=== PATIENT | female | born 1930 | race Caucasian/White ===

== ENCOUNTER 2017-09-01 07:59 | Emergency (ER) | payer MEDICARE ==
[~2017-09-01] VITALS: Ht 152.4 cm; Wt 81.6 kg
[2017-09-01] MEDS ORDERED: SODIUM CHLORIDE 0.9% 1000ML 1,000 ML IV STA (08:06)
[2017-09-01] MEDS ORDERED: MORPHINE SULFATE INJ 4 MG/ML INJ IV STA (08:06)
[2017-09-01] MEDS ORDERED: FAMOTIDINE 20 MG/2 ML VIAL IV ONE (08:15)
[2017-09-01] MEDS ORDERED: KETOROLAC TROMETHAMINE 30 MG/ML VIAL IV ONE (08:15)
[2017-09-01] MEDS ORDERED: CEFTRIAXONE SOD 1 GM VIAL IV ONE (08:15)
[2017-09-01] MEDS ORDERED: ONDANSETRON HCL INJ 2 MG/ML VIAL IV ONE (08:15)
[2017-09-01] MEDS ORDERED: MELOXICAM7.5 MG PO (08:24)
[2017-09-01] MEDS ORDERED: BREO INH (08:24)
[2017-09-01] MEDS ORDERED: CENTRUM SILVER1 EAC3 PO (08:24)
[2017-09-01] MEDS ORDERED: ALLOPURINOL100 MG PO (08:24)
[2017-09-01] MEDS ORDERED: LEVOTHYROXINE75 MCG PO (08:24)
[2017-09-01] MEDS ORDERED: METFORMIN HCL500 M1 PO (08:24)
[2017-09-01] MEDS ORDERED: METFORMIN HCL500 M2 PO (08:24)
[2017-09-01 08:55] LABS: BASOPHILS # (AUTO) 0.1 (0.0-0.1); BASOPHILS % 0.5 % (0.0-1.0); EOSINOPHILS # (AUTO) 0.1 (0.0-0.4); HEMATOCRIT 40.1 % (34.2-44.1); HEMOGLOBIN 13.3 g/dL (12.0-16.0); LYMPHOCYTES # (AUTO) 4.2 (1.0-3.2); LYMPHOCYTES % 35.6 % (18.0-39.1); MEAN CORPUSCULAR HEMOGLOBIN 29.6 pg (28-32); MEAN CORPUSCULAR HGB CONC 33.2 g/dL (31-35); MEAN CORPUSCULAR VOLUME 89.1 fL (81-99); MONOCYTES # (AUTO) 0.7 (0.2-0.8); MONOCYTES % 5.6 % (4.4-11.3); NEUTROPHILS # (AUTO) 6.8 (2.1-6.9); NEUTROPHILS % 56.8 % (38.7-80.0); PLATELET COUNT 295 x10e3/uL (140-360); RED CELL DISTRIBUTION WIDTH 12.8 % (11.7-14.4)
[2017-09-01 08:57] LABS: CLARITY,URINE HAZY (CLEAR); COLOR,URINE YELLOW (YELLOW); KETONES,URINE TRACE (NEGATIVE); LEUKOCYTE ESTERASE ,URINE 1+ (NEGATIVE); NITRITE,URINE NEGATIVE (NEGATIVE); PROTEIN,URINE DIPSTICK NEGATIVE (NEGATIVE)
[2017-09-01 08:58] LABS: BILIRUBIN,URINE NEGATIVE (NEGATIVE); EPITHELIAL CELLS,URINE RARE /LPF; RBC,URINE 0-5 /HPF (0-5); URINE UROBILINOGEN 0.2 mg/dL (0.2 - 1); WBC,URINE (MAN) 0-5 /HPF (0-5)
[2017-09-01 09:07] LABS: ALANINE AMINOTRANSFERASE 14 IU/L (0-55); ALBUMIN 3.9 g/dL (3.5-5.0); ALBUMIN/GLOBULIN RATIO 1.1 (0.8-2.0); ALKALINE PHOSPHATASE 64 IU/L (40-150); ANION GAP 14.9 mmol/L (8-16); BLOOD UREA NITROGEN 20 mg/dL (7-26); BUN/CREATININE RATIO 25 (6-25); CALCIUM 10.4 mg/dL (8.4-10.2); CARBON DIOXIDE 20 mmol/L (22-29); CHLORIDE 104 mmol/L (98-107); CREATININE, SERUM 0.79 mg/dL (0.57-1.11); EST GLOMERULAR FILTRATION RATE > 60 ML/MIN (60-); GLUCOSE 156 mg/dL (74-118); POTASSIUM 3.9 mmol/L (3.5-5.1); SODIUM 135 mmol/L (136-145)
[2017-09-01] MEDS ORDERED: ENALAPRILAT IV INJ 1.25 MG/ML VIAL IV ONE (09:15)
[2017-09-01] MEDS ORDERED: AMLODIPINE BESYLATE 5 MG TAB PO ONE (09:15)
--- NOTE | 2017-09-01 09:19 | Diagnostic Imaging Report ---
EXAM: CT Abdomen and Pelvis WITHOUT contrast INDICATION: Bladder infection. Stone. COMPARISON: None. TECHNIQUE: Abdomen and pelvis were scanned utilizing a multidetector helical scanner from the lung base to the pubic symphysis without administration of IV contrast. Absence of intravenous contrast decreases sensitivity for detection of focal lesions and vascular pathology. Coronal and sagittal reformations were obtained. Routine protocol was performed. IV CONTRAST: None. ORAL CONTRAST: Water RADIATION DOSE: Total DLP: 604.08 mGy*cm Estimated effective dose: (DLP x 0.015 x size factor) mSv COMPLICATIONS: None FINDINGS: LINES and TUBES: None. LOWER THORAX: Bibasilar subsegmental atelectasis. No consolidation or pleural effusion. 2 mm pleural-based nodule in the right lung base posterolaterally on image 10 series 3. HEPATOBILIARY: No focal hepatic lesions. No biliary ductal dilation. GALLBLADDER: No radio-opaque stones or sludge. No wall thickening. SPLEEN: No splenomegaly. PANCREAS: No focal masses or ductal dilatation. ADRENALS: Tiny adrenal adenomata. KIDNEYS/URETERS: No hydronephrosis. Mild bilateral pelviectasis, right greater than left. 2.5 cm right kidney posteromedially. This is the anterior interpolar region of the left kidney on image 9 series 3. No stones. GI TRACT: No abnormal distention, wall thickening, or evidence of bowel obstruction. Appendix is not visualized. Possible appendiceal stump on image 101. Diverticulosis without diverticulitis. PELVIC ORGANS/BLADDER: Punctate calcific densities in the pelvis, posterior to the right UVJ on image 24 through 28 probably represents phleboliths. Hysterectomy. LYMPH NODES: No lymphadenopathy. VESSELS: There is moderate atherosclerotic disease in the aorta and major arterial branches. PERITONEUM / RETROPERITONEUM: No free air or fluid. BONES: Unremarkable. SOFT TISSUES: Unremarkable. IMPRESSION: 1. No obstructing renal calculi. 2. Diverticulosis coli without diverticulitis. Signed by: Dr. Mejia Valentin M.D. on 09/01/2017 9:16 AM
[2017-09-01 10:34] VITALS: BP 168/60
== END 2017-09-01 10:51 | disposition home or self-care (01) ==
LOC: ER 08:07
DX: R30.0 Dysuria (principal); R11.0 Nausea; R10.32 Left lower quadrant pain; R10.2 Pelvic and perineal pain; N30.00 Acute cystitis without hematuria; N10 Acute pyelonephritis
CPT/HCPCS: 36415; 74176; 80053; 81001; 85025; 87086; 99284; J0696; J1885; J2270; J2405; J7030